=== PATIENT | female | born 2000 | race African-American/Black ===

== ENCOUNTER 2025-06-15 02:37 | Emergency (ER) | payer OTHER, MEDICAID ==
[~2025-06-15] VITALS: Ht 162.6 cm; Wt 55.0 kg
[2025-06-15 02:57] VITALS: O2SAT 98
[2025-06-15 05:31] VITALS: BP 114/75; PULSE 76; RESP 16; TEMP 36.8; O2SAT 99
== END 2025-06-15 05:35 | disposition home or self-care (01) ==
LOC: ER 02:37
DX: S39.012A Strain of muscle, fascia and tendon of lower back, initial encounter (principal); X58.XXXA Exposure to other specified factors, initial encounter; Y93.89 Activity, other specified; Y92.89 Other specified places as the place of occurrence of the external cause; Y99.8 Other external cause status
CPT/HCPCS: 99282